=== PATIENT | female | born 2000 | race Hispanic/Latino ===

== ENCOUNTER 2022-10-15 17:14 | Outpatient (CLI) | payer BC | END 2022-10-15 17:15 | disposition home or self-care (01) | LOC: CSHRAD 17:14 | PROVIDERS: ATTEND Nurse Practitioner Family | DX: R10.2 Pelvic and perineal pain (principal); N83.8 Other noninflammatory disorders of ovary, fallopian tube and broad ligament | CPT/HCPCS: 76856 ==